=== PATIENT | male | born 1975 | race Caucasian/White ===

== ENCOUNTER 2021-11-09 20:11 | Emergency (ER) | payer SELFPAY ==
[~2021-11-09] VITALS: Ht 188 cm; Wt 104.5 kg
[2021-11-09 21:50] LABS: BASO % 0.4 % (0.0-2.0); EOS # 0.5 K/mm3 (0.0-0.7); EOS % 5.1 % (0.0-4.0); GRAN # 4.8 K/mm3 (1.4-6.5); HEMATOCRIT 45.9 % (42.0-52.0); HEMOGLOBIN 16.3 g/dl (13.5-18.0); LYMPH % 32.8 % (20.0-51.0); MEAN CELL VOLUME 89 fl (80.0-100.0); MEAN CORPUSCULAR HEMOGLOBIN 32 pg (27-31); MEAN CORPUSCULAR HGB CONC 36 g/dl (33.0-37.0); MEAN PLATELET VOLUME 10.7 fl (7.4-10.4); MONO # 0.7 K/mm3 (0.1-0.6); MONO % 8.1 % (1.7-9.3); PLATELET COUNT 238 K/mm3 (130-400); RED BLOOD COUNT 5.15 M/mm3 (4.20-5.60); REDCELL DISTRIBUTION WIDTH-CV 12.5 % (11.5-14.5)
[2021-11-09 22:08] LABS: ALBUMIN 3.8 gm/dL (3.5-5.0); BILIRUBIN,TOTAL 0.2 mg/dL (0.2-1.2); C-REACTIVE PROTEIN 0.2 mg/dL (0.00-0.50); CALCIUM 9.2 mg/dL (8.4-10.2); CREATININE, serum 0.82 mg/dL (0.72-1.25); POTASSIUM 4.5 mmol/L (3.5-4.5); TOTAL PROTEIN 7.1 gm/dL (6.2-8.1)
[2021-11-09 23:29] VITALS: BP 125/89; PULSE 67; TEMP 97.9
== END 2021-11-09 23:31 | disposition home or self-care (01) ==
LOC: COL.ER 20:11
PROVIDERS: Emergency Medicine
DX: K40.90 Unilateral inguinal hernia, without obstruction or gangrene, not specified as recurrent (principal); F17.210 Nicotine dependence, cigarettes, uncomplicated
CPT/HCPCS: J2270; J2405; J7030; Q9967

== ENCOUNTER 2021-11-13 11:00 | Day surgery (SDC) | payer SELFPAY ==
[~2021-11-13] VITALS: Ht 188 cm; Wt 110.2 kg
[2021-11-13 10:21] VITALS: BP 134/89; PULSE 76; TEMP 97.6
[2021-11-13] MEDS ORDERED: ALEVE 220MG220 MG PO (12:00)
[2021-11-13] MEDS ORDERED: MOTRIN 600600 MG/TAB PO (12:00)
[2021-11-13 12:07] VITALS: BP 121/94; PULSE 88; TEMP 97.5
[2021-11-13 12:10] LABS: TRICYCLIC ANTIDEPRESS URINE NEGATIVE
[2021-11-13 12:19] LABS: CALCIUM 8.5 mg/dL (8.4-10.2); CREATININE, serum 0.83 mg/dL (0.72-1.25); POTASSIUM 4.5 mmol/L (3.5-4.5)
--- NOTE | 2021-11-13 15:22 | NUR ---
1210: Patient urine drug screen resulted. 1215: Notifed ERICA Grace of drug screen results. [employer] to notified OR staff. 1225: MD notified of drug screen results. 1240: MD in to see patient and to discuss results. Surgery cancelled. 1245: IV removed without complications and coband applied. 1250: Patient escorted to patient entrance where he met his , Arline.
== END 2021-11-13 12:50 | disposition home or self-care (01) ==
LOC: SDCO 11:00
PROVIDERS: Surgery
DX: K40.90 Unilateral inguinal hernia, without obstruction or gangrene, not specified as recurrent (principal); F17.210 Nicotine dependence, cigarettes, uncomplicated; R82.5 Elevated urine levels of drugs, medicaments and biological substances; Z53.09 Procedure and treatment not carried out because of other contraindication
CPT/HCPCS: J2704; J7120

== ENCOUNTER 2021-12-01 12:31 | Day surgery (SDC) | payer SELFPAY ==
[~2021-12-01] VITALS: Ht 188 cm; Wt 113.6 kg
[~2021-12-01 12:31] MED LIST: ALEVE 220MG220 MG PO; MOTRIN 600600 MG/TAB PO
[2021-12-01 13:01] LABS: TRICYCLIC ANTIDEPRESS URINE NEGATIVE
[2021-12-01 13:46] VITALS: BP 124/82; PULSE 63; TEMP 98
[2021-12-01 13:56] LABS: CALCIUM 8.6 mg/dL (8.4-10.2); CREATININE, serum 0.8 mg/dL (0.72-1.25); POTASSIUM 4.3 mmol/L (3.5-4.5)
--- NOTE | 2021-12-01 14:37 | NUR ---
Pt taken by ALCIRA Ahn via cart to OR for scheduled surgery.
[2021-12-01] MEDS ORDERED: MOTRIN 600600 MG/TAB PO (16:27)
[2021-12-01] MEDS ORDERED: NORCO 325 MG-51 TAB PO (16:27)
[2021-12-01 16:45] VITALS: BP 140/61; PULSE 71; TEMP 98.1
[2021-12-01 17:00] VITALS: BP 141/78; PULSE 67
[2021-12-01 17:15] VITALS: BP 123/74; PULSE 65
[2021-12-01 17:35] VITALS: BP 128/74; PULSE 70; TEMP 97
--- NOTE | 2021-12-01 17:50 | NUR ---
1645 PT RETURN TO [facility] VIA CART. ALERT AND ORIENTED. MONTIORS ATTACHED. INTERVALS AND ALARMS SET. VSS. OPERATIVE SITE DRY AND INTACT. PT DENIES NAUSEA, REPORTS PAIN 8/10. PT AGREES TO TRY ORAL PAIN MEDICATION AFTER ABLE TO TOLERATE FOOD. PUDDING AND SPRITE PROVIDED. NON SLIP SOCKS ON ,CALL LIGHT IN REACH. 1700 VSS. PT REPORTS DECREASE IN PAIN, REQUEST PAIN MEDICATION. 1715 VSS. TOLERATING FOOD AND DRINK WELL. REVIEWED DISCHARGE INFORMATION AND EDUCATION PACKET, ANSWERED ALL QUESTIONS. 1740 PT UP TO RESTROOM, ABLE TO VOID WITHOUT DIFFICULTY. IV REMOVED WITHOUT COMPLICATION. PT C/O OF PAIN, BUT REPORTS IT IS TOLERABLE AND REQUEST DISCHARGE HOME. PT ALLOWED TO DRESS. 1800 PT TRANSFERED TO PERSONAL VEHICLE VIA WHEELCHAIR TO BE DRIVEN HOME BY FRIEND.
== END 2021-12-01 18:00 | disposition home or self-care (01) ==
LOC: SDCO 12:31
PROVIDERS: Registered Nurse; Surgery
DX: K40.90 Unilateral inguinal hernia, without obstruction or gangrene, not specified as recurrent (principal); F17.210 Nicotine dependence, cigarettes, uncomplicated
CPT/HCPCS: C1781; J0690; J1100; J2405; J2704; J3010; J7120